=== PATIENT | male | born 1990 ===

== ENCOUNTER 2017-01-08 07:13 | Emergency (ER) | payer OTHER ==
[2017-01-08] MEDS ORDERED: Acetaminophen TAB* 325 MG PO ONE (07:55)
--- NOTE | 2017-01-08 08:00 | UC ---
Fam Dyer Alok, scribed for Katia Hargrove MD on 01/08/17 at 0750 . Lower Extremity/Ankle HPI - HPI Summary HPI Summary: 26 y/o male presents to with c/o of left toe pain beginning two days ago and worsening since yesterday. Pain reportedly woke the pt up at 0600 this morning prompting his visit to the . Pt denies trauma. yesterday took Ibuprofen to alleviate pain with little relief. No analgesia today. Toe pain stated to worsen with bending and wearing socks. No drainage. No erythema. No wounds. NO ankle, knee pain. No N/V, fever, or chills. Pt takes Lexapro, Wellbutrin, and vitamin D to treat depression and has NKDA. No h./o gout - History of Current Complaint Chief Complaint: UC Stated Complaint: TOE PAIN Time Seen by Provider: 01/08/17 07:27 Hx Obtained From: Patient Onset/Duration: Gradual Onset, Lasting Days, Still Present Severity Initially: Moderate Severity Currently: Moderate Aggravating Factor(s): Other - Toe bending, sock wearing Alleviating Factor(s): OTC Meds - Ibuprofen - Risk Factors Gout Risk Factors: Male - Allergies/Home Medications Allergies/Adverse Reactions: Allergies Allergy/AdvReac Type Severity Reaction Status Date / Time No Known Allergies Allergy Verified 01/08/17 07:19 Home Medications: Home Medications Bupropion XL (NF) [Wellbutrin XL (NF)] 450 mg PO DAILY 01/08/17 [History Confirmed 01/08/17] Cholecalciferol [Vitamin D] 1,000 unit PO DAILY 01/08/17 [History Confirmed 06/19] Escitalopram Oxalate [Lexapro] 10 mg PO DAILY 01/08/17 [History Confirmed ] Ibuprofen [Ibuprofen 200 MG] 400 mg PO Q6H PRN 01/08/17 [History Confirmed 01/08] PMH/Surg Hx/FS Hx/Imm Hx Previously Healthy: Yes - Surgical History Surgical History: None - Family History Known Family History: Negative: Cardiac Disease, Diabetes - Social History Occupation: Student Alcohol Use: Occasionally Substance Use Type: None Smoking Status (MU): Never Smoked Tobacco - Immunization History Most Recent Influenza Vaccination: fall 2015 Review of Systems Constitutional: Negative Skin: Negative Eyes: Negative ENT: Negative Respiratory: Negative Cardiovascular: Negative Gastrointestinal: Negative Genitourinary: Negative Motor: Negative Neurovascular: Negative Musculoskeletal: Other: - Toe pain Neurological: Negative Psychological: Negative All Other Systems Reviewed And Are Negative: Yes Physical Exam Triage Information Reviewed: Yes Appearance: Well-Appearing, No Pain Distress Vital Signs: Initial Vital Signs Temp 97.8 F 01/08/17 07:21 Pulse 67 01/08/17 07:21 Resp 16 01/08/17 07:21 BP 139/83 01/08/17 07:21 Pulse Ox 99 01/08/17 07:21 Eye Exam: Normal ENT Exam: Normal Respiratory: Positive: No respiratory distress, No accessory muscle use Cardiovascular: Positive: Other: - 2+ DP, PT CBT < 2 sec foot warm Musculoskeletal Exam: Other - + TTP base of left great toe nail at cuticle. minimal erythema No edema, drainage + flex/ext IP with tenderness at cuticle + flex/ext MCP, ankle No crepitus Neurological Exam: Other - + gross sensation throughout toe Neurological: Positive: Alert Psychological: Positive: Normal Response To Family Skin Exam: Other - mild erythema at cuticle medial margin left great toe no fluctuance, no induration No tenderness MCP Lower Extremity Course/Dx - Course Course Of Treatment: Pt with progressive discomfort and tenderness at cuticle margin of left great toe. Full AROM. Consideration for gout, but exam more consistent with early ingrown toenail. Will check uric acid - f/u at [place]. 0810 Pt markedly improved. feeling better. taking po. Will d/c - reviewed plan of care - pt in agreement. Soaks, abx. f/u [facility]. During exam, pt became lightheaded an pale - near vasovagal - no LOC. Pt place supine, RN at bedside, + po water. VSS. monitor - po - Differential Dx/Diagnosis Provider Diagnoses: ingrown toenail Discharge - Discharge Plan Condition: Stable Disposition: HOME Prescriptions: Sulfamethox/Trimethoprim DS* [Bactrim DS 800/160 TAB*] 1 tab PO BID #14 tab Patient Education Materials: Ingrown Nail (ED) Referrals: [facility] [Provider Group] Non Staff,Doctor [Primary Care Provider] - Additional Instructions: - Soak your foot in warm epsom salt soaks for 20 minutes, 3-4 times a day - Take antibiotics as prescribed until gone - Okay to alternate ibuprofen (Advil, MOtrin) and tylenol every 3 hours for pain. Take with food. Do NOT take for more than 4-5 days - Contact Rachel to arrange a follow-up appointment this week. Contact Rachel or return with questions or concerns The documentation as recorded by the Fam ferguson Alok accurately reflects the service I personally performed and the decisions made by me, Katia Hargrove MD.
== END 2017-01-08 08:32 | disposition home or self-care (01) ==
LOC: UCEAST 07:13
DX: L60.0 Ingrowing nail (principal)
CPT/HCPCS: 36415; 84550; 99203; A9270-GY; G0463